=== PATIENT | male | born 1950 | race Caucasian/White ===

== ENCOUNTER → 2016-11-25 | Outpatient (CLI) | payer OTHER ==
[~2016-11-25] MED LIST: ACET-1311 PO; ADVIN25050 INH; ALBUAER19 INH; AMLO-110 PO; ASPI-232 PO; CARV25TA2 PO; DORYX PO; EZET10TA63 PO; LANS30CA12 PO; POTA-327 PO; PRAV20TA PO; SUCR1TAB29 PO; TAMS0.4C38 PO; VENL75TA4 PO
[2016-11-25 13:23] LABS: BASO ABS # 0.05 K/uL (0-0.2); COMPLETE YES; EOS % 3.1 %; HEMATOCRIT 41.1 % (42-52); IG% 0.2 %; LYMPH % 27.5 %; LYMPH ABS # 1.34 K/uL (1.2-3.4); MEAN CELL VOLUME 79.8 fL (80-100); MEAN CORPUSCULAR HEMOGLOBIN 28.5 pg (25-34); MEAN CORPUSCULAR HGB CONC 35.8 g/dl (32-36); MEAN PLATELET VOLUME 10.4 fL (7.4-10.4); NEUT % 59.2 %; PLATELET COUNT 215 K/uL (130-400); RED BLOOD COUNT 5.15 M/uL (4.7-6.1); WHITE BLOOD COUNT 4.88 K/uL (4.8-10.8)
[2016-11-25 13:43] LABS: ALT/SGPT 33 U/L (12-78); BLOOD UREA NITROGEN 15 mg/dl (7-18); BUN/CREATININE RATIO 15.2 (10-20); CALCIUM 9.1 mg/dl (8.5-10.1); CARBON DIOXIDE 25 mmol/L (21-32); CHLORIDE 105 mmol/L (98-107); CREATININE 0.96 mg/dl (0.60-1.40); GLUCOSE 115 mg/dl (70-99); POTASSIUM 3.4 mmol/L (3.5-5.1); SODIUM 142 mmol/L (136-145)
[2016-11-25 13:53] LABS: ALB/GLOB RATIO 1.3 (0.9-2); ALKALINE PHOSPHATASE 101 U/L (45-117); AST/SGOT 19 U/L (15-37)
== END | disposition home or self-care (01) ==
LOC: C.LABSPEC 12:43
PROVIDERS: ATTEND Family Medicine
DX: R42 Dizziness and giddiness (principal); I10 Essential (primary) hypertension; E78.2 Mixed hyperlipidemia

== ENCOUNTER → 2017-08-26 | Outpatient (CLI) | payer OTHER ==
[2017-08-26 13:30] LABS: BASO % 0.9 %; BASO ABS # 0.05 K/uL (0-0.2); COMPLETE YES; EOS % 2.3 %; HEMATOCRIT 39.9 % (42-52); IG% 0.3 %; LYMPH % 29.4 %; LYMPH ABS # 1.69 K/uL (1.2-3.4); MEAN CELL VOLUME 80.3 fL (80-100); MEAN CORPUSCULAR HEMOGLOBIN 28.2 pg (25-34); MEAN CORPUSCULAR HGB CONC 35.1 g/dl (32-36); MEAN PLATELET VOLUME 10.1 fL (7.4-10.4); MONO % 9.4 %; NEUT % 57.7 %; PLATELET COUNT 204 K/uL (130-400); RED BLOOD COUNT 4.97 M/uL (4.7-6.1); WHITE BLOOD COUNT 5.75 K/uL (4.8-10.8)
[2017-08-26 13:41] LABS: ALT/SGPT 37 U/L (12-78); AST/SGOT 21 U/L (15-37); BLOOD UREA NITROGEN 23 mg/dl (7-18); BUN/CREATININE RATIO 23.2 (10-20); CALCIUM 8.6 mg/dl (8.5-10.1); CARBON DIOXIDE 29 mmol/L (21-32); CHLORIDE 102 mmol/L (98-107); CREATININE 1.01 mg/dl (0.60-1.40); GLUCOSE 131 mg/dl (70-99); POTASSIUM 3.1 mmol/L (3.5-5.1); SODIUM 139 mmol/L (136-145)
[2017-08-26 13:46] LABS: ALB/GLOB RATIO 1.2 (0.9-2); ALKALINE PHOSPHATASE 85 U/L (45-117); CHOLESTEROL 221 mg/dl (0-200); CHOLESTEROL/HDL RATIO 6.1; HDL CHOLESTEROL 36 mg/dl; PROSTATE SPECIFIC ANTIGEN 0.808 ng/ml (0.000-4.000); TRIGLYCERIDES 552 mg/dl (0-150)
== END | disposition home or self-care (01) ==
LOC: C.LABSPEC 12:40
PROVIDERS: ATTEND Family Medicine
DX: N40.1 Benign prostatic hyperplasia with lower urinary tract symptoms (principal); I10 Essential (primary) hypertension

== ENCOUNTER → 2017-12-09 | Outpatient (CLI) | payer OTHER ==
[2017-12-09 13:26] LABS: ALBUMIN 3.9 gm/dl (3.4-5.0); ALT/SGPT 38 U/L (12-78); BLOOD UREA NITROGEN 22 mg/dl (7-18); CALCIUM 9.2 mg/dl (8.5-10.1); CARBON DIOXIDE 29 mmol/L (21-32); CHOLESTEROL 163 mg/dl (0-200); CREATININE 1.09 mg/dl (0.60-1.40); GLUCOSE 140 mg/dl (70-99); SODIUM 140 mmol/L (136-145)
[2017-12-09 13:29] LABS: ALKALINE PHOSPHATASE 89 U/L (45-117); AST/SGOT 23 U/L (15-37); LDL CHOLESTEROL CALCULATED 53 mg/dl; TOTAL PROTEIN 7.3 gm/dl (6.4-8.2)
== END | disposition home or self-care (01) ==
LOC: C.LABSPEC 12:15
PROVIDERS: ATTEND Family Medicine
DX: E78.2 Mixed hyperlipidemia (principal); M79.1 Myalgia

== ENCOUNTER 2018-12-20 08:19 | Inpatient (IN) ==
--- NOTE | 2018-11-14 13:12 | Anesthesiology Consultation ---
Date of Service November 14, 2018 Assessment & Plan (1) Encounter for pre-operative examination: Chart Review Chart Review: Acceptable Risk for Surgery and Patient seen in Pre Admission Testing Consults Requested medical (Dr. Cody Lomax (12/04)) Note sent to PCP about HgbA1C and BSG. (11/15) Note from PCP dated 12/05/18 stated "Mr. Callahan was seen in the office yesterday and blood work was performed for the high sugar which improved. Based on PAT and recent results he is cleared for total knee replacement. If you have any questions please do not hesitate to contact me." Teaching & Discussion Pre-Anesthesia Teaching/Discussion Notes: Instructed NPO after midnight before surgery, except medications with 15 cc of water. Medication instructions provided according to the PAT guidelines. History Surgery Operation Date: 12/20/18 07:00 Proposed Procedures p Right Total Knee Arthroplasty, Excision Loose Bodies - Duncan Dominguez MD Height/Weight Height: 6 ft 2 in Weight: 138.3 kg Allergies Allergy/AdvReac Type Severity Reaction Status Date / Time No Known Allergies Allergy Unknown Verified 11/14/18 11:59 Medications Home Medications Medication Instructions Recorded Confirmed Last Taken amlodipine 10 mg PO QAM 11/14/18 11/14/18 Unknown aspirin [Aspirin Low Dose] 81 mg PO HS 11/14/18 11/14/18 Unknown budesonide-formoterol [Symbicort] 2 puff INHALATION QAM 11/14/18 11/14/18 Unknown carvedilol 25 mg PO BID 11/14/18 11/14/18 Unknown celecoxib 200 mg PO QAM PRN 11/14/18 11/14/18 Unknown ezetimibe [Zetia] 10 mg PO HS 11/14/18 11/14/18 Unknown finasteride 5 mg PO QPM 11/14/18 11/14/18 Unknown hydrochlorothiazide 25 mg PO QAM 11/14/18 11/14/18 Unknown lansoprazole 30 mg PO BID 11/14/18 11/14/18 Unknown minocycline 100 mg PO UD PRN 11/14/18 11/14/18 Unknown olmesartan-hydrochlorothiazide 1 tab PO QAM 11/14/18 11/14/18 Unknown potassium chloride 10 meq PO QAM 11/14/18 11/14/18 Unknown pravastatin 40 mg PO QPM 11/14/18 11/14/18 Unknown sucralfate 1 g PO BID 11/14/18 11/14/18 Unknown venlafaxine 75 mg PO HS 11/14/18 11/14/18 Unknown Past Medical History Medical History Asthma INDUSTRIAL ASTHMA BPH (benign prostatic hyperplasia) Difficult airway for intubation 11/28/14 - Glidescope #4 with ETT#8.0. Atraumatic x 1 attempt. Diverticular disease GERD (gastroesophageal reflux disease) Hearing deficit NO AIDES Hyperlipidemia Hypertension Kidney stones Osteoarthritis Peptic ulcer disease POSSIBLE BEGINNING STAGES Sleep apnea CPAP Past Surgical History Surgical History H/O thoracic aortic aneurysm repair History of cardiac cath ~10 YEARS AGO. [employer]. NO STENTS ~3-4 YEARS AGO. [employer]. NO STENTS. History of cholecystectomy LAP 11/28/14 - Glidescope #4 with ETT#8.0. Atraumatic x 1 attempt. History of colonoscopy History of esophagogastroduodenoscopy (EGD) History of open reduction and internal fixation (ORIF) procedure RIGHT ANKLE History of total knee replacement LEFT KNEE Past Anesthesia History No Hx of Anesthesia Complications and No Family Hx of Anesthesia Complications History of PONV No Motion Sickness Screening History of Motion Sickness: Yes Social History Smoking Status: Never smoker Do You Dip or Chew Tobacco: No Hx Alcohol Use: No Hx Substance Use: No substance use type: does not use Exercise / Class Metabolic Activity II 4-5 Yardwork/Stairs/Walk up hill (Able to climb FOS slowly due to knee pain. Denies CP. Does get some SOB due to Asthma. ) Review of Systems Patient denies chest pain, shortness of breath, cough, wheezing, palpitations. +PIERSON (Asthma related per patient) +joint pain (right knee, right ankle) +acid reflux (moderately controlled with medications, but has to be careful about what he eats) +wheezing (at times due to asthma) Physical Exam Vital Signs BP: 154/89 P: 46 R: 18 T: 98.1 SPO2: 97% on RA Constitutional + obese ENMT Thyromental Distance: < 3.5 Finger Breadths (2) Mallampati Class: IV Neck normal visual inspection, trachea midline and + thick neck; neck extension not limited Respiratory normal respiratory effort Auscultation: lungs clear to auscultation bilaterally Cardiovascular Rate/Rhythm: regular rate and regular rhythm Heart Sounds: no murmur Vessels: no carotid bruit Neurologic moves all extremities Psychiatric Orientation: alert and oriented x 3 Testing Electrocardiogram Date: 11/14/18 Findings: + SB @ (49) and + RBBB 1st degree A-V block. Left axis deviation. When compared with ECG of 11-22-14, RBBB is now present. Chest X-Ray Date: 11/14/18 Findings: + NAD Echocardiogram Date: 01/23/16 EF: 60-65% LV Function: normal RWMA: + none Other Findings: + LVH (Mild) and + diastolic dysfunction (Grade 1 (abnormal relaxation) without evidence of increased filling pressure) Severely dilated left atrium. Severely dilated right atrium. Severely enlarged right ventricular size. Normal right ventricular systolic function. Aortic root 3.9cm with ascending aorta 3.9cm. s/p aneurysm repair 32 hemashield dacron graft. No significant change since the prior study of 02/2015. Cardiac Catheterization Date: 05/03/14 1. Calcified left main 2. Calcium in the LAD artery with a 40-40% proximal stenosis. 3. Circumflex demonstrates no irregularities. 4. RCA demonstrates no irregularities. 5. Ventriculogram demonstrates EF of 50%. No significant stenosis or regurgitation. 6. The aortic root is markedly enlarged. *This was done the month before his aortic aneurysm repair* Laboratory Results 11/14/18 12:56 11/14/18 12:56 Blood Type O Positive 11/14/18 12:56 Antibody Screen NEGATIVE 11/14/18 12:56 PT 10.7 Seconds (9.0-12.0) 11/14/18 12:56 INR 1.1 (0.9-1.1) 11/14/18 12:56 APTT 24.4 Seconds (21.0-31.0) 11/14/18 12:56 Hemoglobin A1c 7.4 % (4.5-5.6) H 11/14/18 12:56 Urine Color Yellow 11/14/18 12:56 Urine Appearance Clear (Clear) 11/14/18 12:56 Urine pH 7.0 (4.5-7.5) 11/14/18 12:56 Ur Specific [place] 1.020 (1.000-1.030) 11/14/18 12:56 Urine Protein Negative (Negative) 11/14/18 12:56 Urine Glucose (UA) Negative (Negative) 11/14/18 12:56 Urine Ketones Negative (Negative) 11/14/18 12:56 Urine Nitrite Negative (Negative) 11/14/18 12:56 Ur Leukocyte Esterase Negative (Negative) 11/14/18 12:56 Surgeon's office notified about HgbA1c and BSG on this patient that has no known history of diabetes.
--- NOTE | 2018-11-14 13:13 | PAT Medication Instructions ---
Medication Instructions Date of Service November 14, 2018 Home Medications amlodipine 10 mg PO QAM aspirin [Aspirin Low Dose] 81 mg PO HS budesonide-formoterol [Symbicort] 2 puff INHALATION QAM carvedilol 25 mg PO BID celecoxib 200 mg PO QAM PRN ezetimibe [Zetia] 10 mg PO HS finasteride 5 mg PO QPM hydrochlorothiazide 25 mg PO QAM lansoprazole 30 mg PO BID minocycline 100 mg PO UD PRN olmesartan-hydrochlorothiazide 1 tab PO QAM potassium chloride 10 meq PO QAM pravastatin 40 mg PO QPM sucralfate 1 g PO BID venlafaxine 75 mg PO HS Continue as directed minocycline 100 mg PO UD PRN ASK your surgeon for instructions celecoxib 200 mg PO QAM PRN DO NOT take the morning of surgery hydrochlorothiazide 25 mg PO QAM olmesartan-hydrochlorothiazide 1 tab PO QAM potassium chloride 10 meq PO QAM sucralfate 1 g PO BID Take morning of surgery With a small sip of water, OTHERWISE NOTHING TO EAT OR DRINK AFTER MIDNIGHT: amlodipine 10 mg PO QAM budesonide-formoterol [Symbicort] 2 puff INHALATION QAM carvedilol 25 mg PO BID lansoprazole 30 mg PO BID Take evening before surgery aspirin [Aspirin Low Dose] 81 mg PO HS ezetimibe [Zetia] 10 mg PO HS finasteride 5 mg PO QPM lansoprazole 30 mg PO BID pravastatin 40 mg PO QPM sucralfate 1 g PO BID venlafaxine 75 mg PO HS Other Notes If you have any questions please call us at [phone] or [phone] or [phone] or [phone]
[2018-11-14 14:45] LABS: Basophils # (auto) 0.04 K/uL (0-0.2); Basophils % (auto) 0.6 %; Eosinophils # (auto) 0.15 K/uL (0-0.5); Eosinophils % (auto) 2.2 %; Hematocrit (blood only) 42.2 % (42-52); Hemoglobin 14.4 g/dL (14.0-18.0); Immature Granulocytes # (auto) 0.02 K/uL (0.00-0.02); Immature Granulocytes % (auto) 0.3 %; Lymphocytes # (auto) 1.79 K/uL (1.2-3.4); Lymphocytes % (auto) 25.7 %; Mean Corpuscular Hgb Conc 34.1 g/dL (32-36); Mean Corpuscular Volume 81.2 fL (80-100); Monocytes # (auto) 0.53 K/uL (0.11-0.59); Monocytes % (auto) 7.6 %; Neutrophils # (auto) 4.43 K/uL (1.4-6.5); Neutrophils % (auto) 63.6 %; Platelet Count 221 K/uL (130-400); RDW Coefficient of Variation 13.1 % (11.5-14.5); RDW Standard Deviation 39.3 fL (36.4-46.3); White Blood Count 6.96 K/uL (4.8-10.8)
[2018-11-14 14:53] LABS: BUN Creatinine Ratio 21.2 (10-20); Calcium 8.8 mg/dl (8.5-10.1); Est GFR (African American) 78.9; Est GFR (Non-African American) 68.1; Potassium 3.2 mmol/L (3.5-5.1)
[2018-11-14 14:59] LABS: INR 1.1 (0.9-1.1); Partial Thromboplastin Ratio 0.9; Partial Thromboplastin Time 24.4 Seconds (21.0-31.0); Prothrombin Time 10.7 Seconds (9.0-12.0)
[2018-11-14 15:16] LABS: Appearance Urine Clear (Clear); Bilirubin Urine Negative (Negative); Blood Urine Negative (Negative); Color Urine Yellow; Glucose Urine UA Negative (Negative); Ketones Urine Negative (Negative); Leukocyte Esterase Urine Negative (Negative); Nitrite Urine Negative (Negative); Protein Urine Negative (Negative); Urobilinogen Urine Negative (Negative)
--- NOTE | 2018-11-14 15:43 | XRay Report ---
XR chest Pre-admission PA/Lat HISTORY: 68 years-old Male pat preoperative exam. No acute chest complaints COMPARISON: Chest radiograph 11/22/2014 TECHNIQUE: PA and lateral views of the chest FINDINGS: Cardiomediastinal and hilar silhouettes appear unchanged. Prior median sternotomy. Calcification of t he thoracic aortic arch. There is no pneumothorax, pleural effusion, focal airspace consolidation or overt pulmonary edema. Degenerative changes are noted about the shoulders and spine. IMPRESSION: No acute process. The above report was generated using voice recognition software. It may contain grammatical, syntax o r spelling errors. Electronically signed by: Robinson Rea M.D. 11/14/2018 3:41 PM
[2018-11-15 05:40] LABS: Estimated Average Glucose 166 mg/dl; Hemoglobin A1C 7.4 % (4.5-5.6)
--- NOTE | 2018-12-19 18:44 | History and Physical Report ---
DATE OF ADMISSION: 12/20/2018 CHIEF COMPLAINT: Chronic right knee pain and instability. HISTORY OF PRESENT ILLNESS: This is a 68-year-old male patient of Dr. Galan complaining of chronic right knee pain, longstanding, now progressively getting worse. The patient has failed conservative treatment including anti-inflammatories, intraarticular injections and the use of a brace. The patient has increased pain with weightbearing activities and his pain does interfere with his activities of daily living. PAST MEDICAL HISTORY: Hypertension, hypercholesterolemia, asthma, sleep apnea with the use of CPAP, anxiety, osteoarthritis, acid reflux, obesity, kidney stones, BPH. SOCIAL HISTORY: Nonsmoker, nondrinker. FAMILY HISTORY: Noncontributory. REVIEW OF SYSTEMS: Chronic right knee pain and instability. Otherwise denies any shortness of breath, chest pain, nausea, vomiting or any other joint complaints. PAST SURGICAL HISTORY: Left knee replacement, aortic aneurysm repair, cholecystectomy, ankle repair. MEDICATIONS: Zetia 10 mg daily, potassium chloride 10 mEq daily, venlafaxine 75 mg daily, olmesartan/hydrochlorothiazide 40/25 daily, amlodipine 10 mg daily, finasteride 5 mg daily, pravastatin 40 mg daily, hydrochlorothiazide 25 mg daily, aspirin 81 mg daily, carvedilol 25 mg twice daily, lansoprazole 30 mg twice daily, sucralfate 1 gram twice daily, Symbicort 160/45 two puffs daily, minocycline 100 mg as needed, Celebrex 200 mg daily. ALLERGIES: No known drug allergies. PHYSICAL EXAMINATION: GENERAL: Well-developed, well-nourished 68-year-old male patient of Dr. Galan. He is alert and oriented x3 and pleasant. HEENT: Normocephalic, atraumatic. Extraocular motions are intact. Pupils are equal and reactive to light. HEART: Regular rate and rhythm, no murmurs. LUNGS: Clear. ABDOMEN: Soft, nontender, bowel sounds present. EXTREMITIES: Right knee reveals a mild effusion. He has a limited range of motion of 0-120 degrees with a varus deformity. He has medial joint line tenderness. He has 5/5 strength. Neurologically and neurovascularly he is intact in his right lower extremity. DIAGNOSES: Right knee end-stage osteoarthritis, hypertension, hypercholesterolemia, asthma, sleep apnea with the use of CPAP, anxiety, osteoarthritis, acid reflux, obesity, kidney stones, benign prostatic hypertrophy. PLAN: The patient was advised of his diagnosis. Indications, risks, benefits, postop course have all been reviewed. The patient wished to proceed with a right total knee arthroplasty. Necessary consent forms, preoperative testing and clearances will be obtained.
[~2018-12-20 08:19] MED LIST changes: -ACET-1311 PO; +ACETAMINOPHEN 500 MG TAB PO SCH; -ADVIN25050 INH; -ALBUAER19 INH; -AMLO-110 PO; -ASPI-232 PO; +BUPIVACAINE 0.5 % 5 MG/1 ML PF 10ML VIAL ONE; -CARV25TA2 PO; +CEFAZOLIN 3000MG 65 ML IV SCH; +CeleBREX 200 MG CAP PO SCH; -DORYX PO; +EPINEPHrine INJ 1 MG/ML AMP ONE; -EZET10TA63 PO; +FAMOTIDINE 20 MG TAB PO SCH; +GABAPENTIN 300 MG PO SCH; -LANS30CA12 PO; +LIDOCAINE HCL 2% 2 ML VIAL/AMP(20MG/ML) INFIL ONE; +LR 500ML BOLUS, THEN 15ML/HR IV SCH; +METOCLOPRAMIDE HCL 10 MG TABLET PO SCH; +MIDAZOLAM HCL 1 MG/ML 2ML VIAL ONE; +ONDANSETRON INJ 2 MG/ML 2 ML VIAL ONE; -POTA-327 PO; -PRAV20TA PO; +PROPOFOL IV EMULSION 10 MG/ML 20 ML VIAL IV ONE; +ROPIVACAINE 0.5% 5 MG/ML 30 ML VIAL ONE; +ROPIVACAINE 0.5% HCL/PF 150 MG, BUPIVACAINE 0.5% MPF 30 ML, EPINEPHrine 30MG/30ML (OR U... INFIL SCH; -SUCR1TAB29 PO; -TAMS0.4C38 PO; +TRANEXAMIC ACID 1,000 MG **IV Intra-op IV SCH; +TRANEXAMIC ACID 1,000 MG **IV Pre-op IV SCH; -VENL75TA4 PO; +dexAMETHasone 4 MG TAB PO SCH; +fentaNYL citrate 100 MCG/2 ML VIAL ONE
--- NOTE | 2018-12-20 08:39 | History & Physical Bridge Note ---
Date of Service December 20, 2018 History & Physical Bridge Note I have examined the patient, reviewed the History & Physical and in the interval since the performance of the History & Physical I have noted the following changes of clinical significance: no changes noted
[2018-12-20] MEDS ORDERED: POVIDONE-IODINE OP SOLN 30 ML BTL ONE (09:19)
[2018-12-20] MEDS ORDERED: ORTHO JOINT ANESTHETIC ONE (09:19)
[2018-12-20] MEDS ORDERED: BACITRACIN INJ 50,000 UNIT VIAL ONE (09:19)
[2018-12-20] MEDS ORDERED: fentaNYL citrate 100 MCG/2 ML VIAL ONE ×4 (09:57→12:17)
[2018-12-20] MEDS ORDERED: ePHEDrine sulfate 50 MG/ML AMP IV PRN (10:08)
[2018-12-20] MEDS ORDERED: ATROPINE SULFATE 0.1 MG/ML 10ML SYR IV PRN (10:08)
[2018-12-20] MEDS ORDERED: PROPOFOL IV EMULSION 10 MG/ML 20 ML VIAL IV ONE (10:26)
[2018-12-20] MEDS ORDERED: MIDAZOLAM HCL 1 MG/ML 2ML VIAL ONE (10:43)
--- NOTE | 2018-12-20 12:09 | Operative Report ---
Post Operative Report Pre & Post Diagnosis Operation Date: 12/20/18 11:00 Pre-Op Diagnosis: Right knee end-stage osteoarthritis multiple posterior medial loose bodies Post-Op Diagnosis: Right knee end-stage osteoarthritis multiple posterior medial loose bodies extra-articular Procedure Operation Date: 12/20/18 11:00 Actual Procedures p Right Total Knee Arthroplasty(Right) - Duncan Dominguez MD Surgeon Duncan Dominguez MD Floor Winder Jose CARDENAS Estimated Blood Loss 5 Findings Consistent with Post-Op Diagnosis Specimens Bone cuts Drains 2 Hemovac Anesthesia Type Spinal MAC Complications none Disposition Accompanied Patient To Recovery: No Disposition: Recovery Room Indications 68-year-old male with chronic progressive medial compartment osteoarthritis in his right knee. History of prior left knee replacement in the past. Patient has multiple calcifications suggesting loose bodies possibly in the Nichols's cyst posterior medially. Description of Procedure The patient was taken to the operating room and anesthetized under spinal MAC regional block. Patient was placed supine on the the operating table. A pneumatic tourniquet was placed about the right upper moderately obese thigh. The knee exam demonstrated varus knee no instability good range of motion. The involved leg was elevated exsanguinated with Esmarch bandage and the pneumatic tourniquet was raised to 350 millimeters mercury. A longitudinal incision was made across the anterior knee. Skin flaps were elevated. An incision was made into the medial retinaculum and extended up into the mid third of the quadriceps tendon and extended down to the tibial tubercle. Intra-articular findings demonstrated medial compartment osteoarthritis [id number]. The knee was exposed by excising cruciate ligaments and menisci. The infrapatellar fat pad was resected. The fat pad over the anterior femur at the upper aspect of the articular surface was resected for placement of the component in that area. A subperiosteal peel lateral release was performed around the patella. The [employer] total knee arthroplasty system was utilized for the procedure. The custom femoral cutting guide was pinned in position. The distal femoral cut was made. The size 8, 5 in 1 cutting block was placed. The anterior posterior and chamfer cuts were made. The knee was extended and a free hand cut technique was performed to the patella. The patella with was measured and the width was reproduced using a 38 patella component. 3 drill holes are made for the patella component pegs. The tibia was then subluxed. The custom tibial cutting block was pinned in position and the proximal tibial cut was made with the oscillating saw. The size 8 tibial trial was externally rotated in line with the tibial tubercle and pinned in position. The punch for the stem was used. The femoral trial was inserted and centered the notch cutting devices were used and the collet was placed. Tibial trials were used for the insert. The size 9 high flex trial gave balanced ligaments through full range of motion. Patella tracking was assessed with range of motion. The patella tracked laterally with some liftoff so I performed a lateral release leaving the synovium intact and the patella tracked centrally.. The trials were removed. The Orthomix anesthetic cocktail was injected per protocol. The cut bone surfaces and soft tissue were copiously irrigated with antibiotic solution with bacitracin. The final components were cemented with Simplex cement. The final components were size 8 right [employer] posterior stabilized femoral component, size 8 tibial primary baseplate, lesion size 9 posterior stabilized high flex poly-insert, 38 symmetrical patella. While the cement cured the Betadine soak was used per protocol. When the cement cured the knee was copiously irrigated with pulsatile lavage antibiotic solution with bacitracin. 2 drains were brought out laterally connected to Hemovac. The quadriceps tendon and medial retinaculum were closed with interrupted [id number] #1 Vicryl sutures. The knee was taken through full range of motion and repair was secure. The subcutaneous tissues were closed with 2-0 Vicryl sutures. The skin was closed with ciara. A sterile dressing was applied. The tourniquet was let down and the patient had good capillary refill to the extremity. The patient tolerated the procedure well. My physician pharmaceutical assistant Jose CARDENAS assisted in the procedure including prepping draping leg positioning soft tissue retraction instrument management and assisted in the closure ,dressings application and will participate in postoperative care the patient. I attest to the content of the Intraoperative Record and any orders documented therein. Any exceptions are noted below.
--- NOTE | 2018-12-20 12:54 | Anesthesiology Progress Note ---
Date of Service December 20, 2018 Anesthesia Post Procedure Vital Signs Vital Signs: Temp Pulse Pulse Pulse Resp BP BP 12/20/18 12:51 53 L 19 137/78 12/20/18 12:50 52 L 14 12/20/18 12:46 52 L 17 141/78 H 12/20/18 12:45 52 L 17 12/20/18 12:41 52 L 19 138/75 12/20/18 12:40 52 L 17 12/20/18 12:36 50 L 14 142/80 H 12/20/18 12:35 52 L 14 12/20/18 12:31 52 L 15 12/20/18 12:30 36.5 C 54 L 53 L 13 143/83 H 143/83 H 12/20/18 08:46 36.6 C 46 L 20 172/87 H Pulse Ox 12/20/18 12:51 97 12/20/18 12:50 98 12/20/18 12:46 97 12/20/18 12:45 98 12/20/18 12:41 99 12/20/18 12:40 100 12/20/18 12:36 100 12/20/18 12:35 100 12/20/18 12:31 100 12/20/18 12:30 100 12/20/18 08:46 97 Pain Intensity Right Knee: Pain Intensity: 0 Notes Mental Status: alert / awake / arousable Patient Amnestic to Procedure: Yes Nausea / Vomiting: adequately controlled Pain: adequately controlled Airway Patency, RR, SpO2: stable & adequate BP & HR: stable & adequate Hydration State: stable & adequate Neuraxial Anesthesia: was administered and sensory block is resolving Anesthetic Complications: no major complications apparent
--- NOTE | 2018-12-20 13:12 | XRay Report ---
XR knee RT 2V routine CLINICAL HISTORY: Surgical Post Op COMPARISON: None. DISCUSSION: There are postsurgical changes of a total right knee arthroplasty and patellar resurfacin g. The femoral tibial components appear well seated. There is air in soft tissues consistent with rec ent surgery. There are overlying skin ciara and surgical drains. There are multiple posterior media l calcifications, likely representing loose bodies within a popliteal cyst. IMPRESSION: 1. Postsurgical changes of a total right knee arthroplasty 2. Suspected multiple loose bodies within a popliteal cyst Electronically signed by: Coy Ramirez M.D. 12/20/2018 1:11 PM
[2018-12-20] MEDS ORDERED: SODIUM CHLORIDE 0.9% 1000ML 1,000 ML IV SCH (13:24)
[2018-12-20] MEDS ORDERED: HYDROmorphone INJ 0.5 MG/0.5 ML SYR IV PRN (13:24)
[2018-12-20] MEDS ORDERED: NALOXONE HCL 0.4 MG/1 ML VIAL/CARP IV PRN (13:24)
[2018-12-20] MEDS ORDERED: MAGNESIUM HYDROXIDE SUSP 30 ML UDC PO PRN (13:24)
[2018-12-20] MEDS ORDERED: ONDANSETRON INJ 2 MG/ML 2 ML VIAL IV PRN (13:24)
[2018-12-20] MEDS ORDERED: BISACODYL 10 MG SUPP PR PRN (13:24)
--- NOTE | 2018-12-20 16:26 | History & Physical Report ---
Date of Service December 20, 2018 Assessment & Plan (1) Knee pain, chronic: post-op R knee Pre-op Hb 14.4 (2) Elevated hemoglobin A1c: Hx of same and improved with weight loss Never dx as DM Advised to work on diet and add in exercise as knee allows Fasting BS on pre-op labs 127 (3) CHERRY (obstructive sleep apnea): CPAP as at home (4) Hyperlipidemia: continue home meds (5) HTN (hypertension): continue home meds (6) GERD (gastroesophageal reflux disease): continue home meds (7) Depression: continue home meds (8) Asthma: No recent exacerbations or rescue inhaler use (9) Anxiety: continue home meds (10) DVT prophylaxis: As per ortho History of Present Illness Primary Care Provider: Chet Lomax 68 y/o M who was admitted on 12/20 s/p R TKA with Dr. Dominguez. Pt is doing well post-op. He has no pain at present. Tolerating PO without issue. Pt denies fever, SOB, chest pain, abd pain, n/v/c/d, LE swelling. Pt states he has no hx of DM. He did have an elevated A1c at one point in the 7s, but he lost weight and it dropped to 7.0. Allergies Allergy/AdvReac Type Severity Reaction Status Date / Time No Known Allergies Allergy Unknown Verified 12/20/18 08:52 Home Medications Home Medications Medication Instructions Recorded Confirmed Type amlodipine 10 mg PO QAM 11/14/18 12/20/18 History aspirin [Aspirin Low Dose] 81 mg PO HS 11/14/18 12/20/18 History budesonide-formoterol [Symbicort] 2 puff INHALATION QAM 11/14/18 12/20/18 History carvedilol 25 mg PO BID 11/14/18 12/20/18 History celecoxib 200 mg PO QAM PRN 11/14/18 12/20/18 History ezetimibe [Zetia] 10 mg PO HS 11/14/18 12/20/18 History finasteride 5 mg PO QPM 11/14/18 12/20/18 History hydrochlorothiazide 25 mg PO QAM 11/14/18 12/20/18 History lansoprazole 30 mg PO BID 11/14/18 12/20/18 History minocycline 100 mg PO UD PRN 11/14/18 12/20/18 History olmesartan-hydrochlorothiazide 1 tab PO QAM 11/14/18 12/20/18 History potassium chloride 10 meq PO QAM 11/14/18 12/20/18 History pravastatin 40 mg PO QPM 11/14/18 12/20/18 History sucralfate 1 g PO BID 11/14/18 12/20/18 History venlafaxine 75 mg PO HS 11/14/18 12/20/18 History Past Med/Surg History Medical History Asthma INDUSTRIAL ASTHMA BPH (benign prostatic hyperplasia) Diverticular disease GERD (gastroesophageal reflux disease) Hearing deficit NO AIDES Hyperlipidemia Hypertension Kidney stones Osteoarthritis Peptic ulcer disease POSSIBLE BEGINNING STAGES Sleep apnea CPAP Surgical History Difficult airway for intubation 11/28/14 - Glidescope #4 with ETT#8.0. Atraumatic x 1 attempt. H/O thoracic aortic aneurysm repair History of cardiac cath ~10 YEARS AGO. [employer]. NO STENTS ~3-4 YEARS AGO. [employer]. NO STENTS. History of cholecystectomy LAP 11/28/14 - Glidescope #4 with ETT#8.0. Atraumatic x 1 attempt. History of colonoscopy History of esophagogastroduodenoscopy (EGD) History of open reduction and internal fixation (ORIF) procedure RIGHT ANKLE History of total knee replacement LEFT KNEE Social History Preferred Language: Icelandic Communication Ability: Effective Broom Man Required: No Beliefs That Will Affect Care: Sikh Current Living Situation: Spouse Other Information That Helps Us Care for You: No Feels Safe at Home: Yes Safety Concerns: Feels Safe At This Time Smoking Status: Never smoker Hx Alcohol Use: No Hx Substance Use: No Review of Systems Pertinent positives and negatives reviewed in HPI--all others negative Physical Exam Vital Signs (Past 24 Hours): Last Vital Signs Temp 36.4 C L 12/20/18 15:38 Pulse 58 L 12/20/18 15:38 Resp 18 12/20/18 15:38 BP 130/76 12/20/18 15:38 Pulse Ox 97 12/20/18 15:38 Constitutional: WD/WN, vitals as above + obese Eyes: normal visual islas by confrontation and + anicteric sclerae Neck: normal visual inspection and trachea midline Respiratory: normal respiratory effort, lungs clear to auscultation Cardiovascular: Rate/Rhythm: regular rate and regular rhythm Gastrointestinal (Abdomen): Inspection/Auscultation: abdomen not distended Percussion/Palpation: abdomen soft; abdomen nontender Musculoskeletal: Head/Neck/Chest: normocephalic and head atraumatic negative for edema, peripheral pulses intact Skin: no rashes, warm and dry Neurologic: awake; not confused Speech / Cognition: normal speech Psychiatric: A+Ox3, euthymic affect Code Status & VTE Plan Code Status Full code
[2018-12-20] MEDS: CEFAZOLIN 2000MG 2,000 MG/15 ML SYR IV SCH (17:24)
[2018-12-20] MEDS: ACETAMINOPHEN 500 MG TAB PO SCH (17:25)
[2018-12-20] MEDS: SENNA 8.6 MG TAB PO SCH (21:15)
[2018-12-20] MEDS: EZETIMIBE 10 MG TABLET PO SCH (21:16)
[2018-12-20] MEDS: PANTOprazole 40 MG TAB PO SCH (21:16)
[2018-12-20] MEDS: DOCUSATE SODIUM 100 MG CAP PO SCH (21:16)
[2018-12-20] MEDS: SUCRALFATE 1 GM TAB PO SCH (21:17)
[2018-12-20] MEDS: CeleBREX 200 MG CAP PO SCH (21:18)
[2018-12-20] MEDS: CARVEDILOL 25 MG TAB PO SCH (21:20)
[2018-12-20] MEDS: ASPIRIN 81 MG ECTAB PO SCH (21:21)
[2018-12-20] MEDS: FINASTERIDE 5 MG TAB PO SCH (21:22)
[2018-12-20] MEDS: PRAVASTATIN SOD 40 MG TAB PO SCH (21:22)
[2018-12-20] MEDS: VENLAFAXINE HCL XR 75 MG CAPXR PO SCH (21:22)
[2018-12-20] MEDS: OXYCODONE HCL IR 5 MG TAB (IMMEDIATE RELEASE) PO PRN (21:32)
[2018-12-21] MEDS: CEFAZOLIN 2000MG 2,000 MG/15 ML SYR IV SCH (00:25)
[2018-12-21] MEDS: ACETAMINOPHEN 500 MG TAB PO SCH ×3 (06:08→22:01)
[2018-12-21 07:41] LABS: Hematocrit (blood only) 37.8 % (42-52); Hemoglobin 13.4 g/dL (14.0-18.0); Mean Corpuscular Hgb Conc 35.4 g/dL (32-36); Mean Corpuscular Volume 81.3 fL (80-100); Mean Platelet Volume 10.3 fL (7.4-10.4); Platelet Count 215 K/uL (130-400); RDW Standard Deviation 38.5 fL (36.4-46.3); Red Blood Count 4.65 M/uL (4.7-6.1); White Blood Count 16.09 K/uL (4.8-10.8)
[2018-12-21 08:14] LABS: BUN Creatinine Ratio 19.3 (10-20); Calcium 8.8 mg/dl (8.5-10.1); Creatinine Clr Calc Pharmacy 94.7 ml/min; Est GFR (African American) 79.8; Est GFR (Non-African American) 68.8; Potassium 3.1 mmol/L (3.5-5.1)
--- NOTE | 2018-12-21 08:24 | Anesthesiology Progress Note ---
Date of Service December 21, 2018 Anesthesia Post Procedure Vital Signs Vital Signs: Temp Pulse Pulse Pulse Pulse Resp BP 12/21/18 07:41 36.6 C 56 L 18 12/21/18 03:08 36.7 C 54 L 20 12/20/18 23:19 36.5 C 56 L 20 12/20/18 19:56 36.7 C 53 L 18 12/20/18 16:15 54 L 18 12/20/18 15:38 36.4 C L 58 L 18 12/20/18 13:41 54 L 16 12/20/18 13:15 36.9 C 54 L 16 12/20/18 12:57 36.9 C 12/20/18 12:56 52 L 15 139/78 12/20/18 12:55 52 L 18 12/20/18 12:52 52 L 16 12/20/18 12:51 53 L 19 137/78 12/20/18 12:50 52 L 14 12/20/18 12:46 52 L 17 141/78 H 12/20/18 12:45 52 L 17 12/20/18 12:41 52 L 19 138/75 12/20/18 12:40 52 L 17 12/20/18 12:36 50 L 14 142/80 H 12/20/18 12:35 52 L 14 12/20/18 12:31 52 L 15 12/20/18 12:30 36.5 C 54 L 53 L 13 143/83 H 12/20/18 08:46 36.6 C 46 L 20 BP Pulse Ox 12/21/18 07:41 152/84 H 99 12/21/18 03:08 129/75 98 12/20/18 23:19 144/68 H 96 12/20/18 19:56 149/81 H 95 12/20/18 16:15 138/81 12/20/18 15:38 130/76 97 12/20/18 13:41 151/99 H 95 12/20/18 13:15 152/78 H 97 12/20/18 12:57 97 12/20/18 12:56 98 12/20/18 12:55 97 12/20/18 12:52 98 12/20/18 12:51 97 12/20/18 12:50 98 12/20/18 12:46 97 12/20/18 12:45 98 12/20/18 12:41 99 12/20/18 12:40 100 12/20/18 12:36 100 12/20/18 12:35 100 12/20/18 12:31 100 12/20/18 12:30 143/83 H 100 12/20/18 08:46 172/87 H 97 Pain Intensity Right Knee: Pain Intensity: 0 Notes Mental Status: alert / awake / arousable and participated in evaluation Nausea / Vomiting: adequately controlled Pain: adequately controlled Airway Patency, RR, SpO2: stable & adequate BP & HR: stable & adequate Hydration State: stable & adequate Neuraxial Anesthesia: sensory block resolved Anesthetic Complications: Pt Satisfied with anesthetic care
[2018-12-21] MEDS: hydroCHLOROthiazide 25 MG TAB PO SCH ×2 (08:32→08:35)
[2018-12-21] MEDS: SUCRALFATE 1 GM TAB PO SCH ×2 (08:33→20:18)
[2018-12-21] MEDS: POTASSIUM CHLORIDE 10 MEQ TABCR PO SCH (08:34)
[2018-12-21] MEDS: CARVEDILOL 25 MG TAB PO SCH ×2 (08:34→20:18)
[2018-12-21] MEDS: ASPIRIN 81 MG ECTAB PO SCH ×2 (08:34→20:18)
[2018-12-21] MEDS: AMLODIPINE BESYLATE 5 MG TAB PO SCH (08:35)
[2018-12-21] MEDS: DOCUSATE SODIUM 100 MG CAP PO SCH ×2 (08:35→20:18)
[2018-12-21] MEDS: OLMESARTAN MEDOXOMIL 40 MG TAB PO SCH (08:36)
[2018-12-21] MEDS: PANTOprazole 40 MG TAB PO SCH ×2 (08:36→20:17)
[2018-12-21] MEDS: CeleBREX 200 MG CAP PO SCH ×2 (08:37→20:18)
[2018-12-21] MEDS: MULTIVITAMIN TAB PO SCH (08:37)
[2018-12-21] MEDS: BUDESONIDE/FORMOTEROL FUMARATE 160/4.5 60 PUFFS/INHALER INH SCH (08:37)
[2018-12-21] MEDS ORDERED: NON-FORMULARY MEDICATION (Olmesartan-Hydrochlorothiazide 1 TAB) PO SCH (09:00)
--- NOTE | 2018-12-21 09:19 | Orthopedic Progress Note ---
Date of Service December 21, 2018 Assessment & Plan (1) Right knee DJD: POD #1, Right TKA PT/ OT DVT proph- ASA D/C planning- Home w HH per medicine Subjective POD #1, Right TKA, doing well, denies SOB, CP, N/V, pain controlled well. Physical Exam Vital Signs (Past 24 Hours): Last Vital Signs Temp 36.6 C 12/21/18 07:41 Pulse 56 L 12/21/18 07:41 Resp 18 12/21/18 07:41 BP 152/84 H 12/21/18 07:41 Pulse Ox 99 12/21/18 07:41 Physical Exam: Right knee dressings c/d/i, no drainage. No calf tenderness. Drain in tact. Toes and ankle mobile. A&Ox3.
[2018-12-21] MEDS: POTASSIUM CHLORIDE 20 MEQ TABCR PO SCH ×2 (10:07→20:19)
[2018-12-21] MEDS: OXYCODONE HCL IR 5 MG TAB (IMMEDIATE RELEASE) PO PRN ×2 (11:18→22:03)
[2018-12-21] MEDS ORDERED: CALCIUM CARBONATE 500 MG CHEWABLE TAB PO PRN (19:19)
[2018-12-21] MEDS: FINASTERIDE 5 MG TAB PO SCH (20:17)
[2018-12-21] MEDS: EZETIMIBE 10 MG TABLET PO SCH (20:18)
[2018-12-21] MEDS: VENLAFAXINE HCL XR 75 MG CAPXR PO SCH (20:18)
[2018-12-21] MEDS: SENNA 8.6 MG TAB PO SCH (20:18)
[2018-12-21] MEDS: PRAVASTATIN SOD 40 MG TAB PO SCH (20:18)
--- NOTE | 2018-12-21 20:45 | Hospitalist Progress Note ---
Date of Service December 21, 2018 Assessment & Plan (1) Asthma: no symptoms at this time cont symbicort (2) GERD (gastroesophageal reflux disease): cont PPI, carafate, and add tums prn for breakthrough symptoms (3) HTN (hypertension): controlled cont home medications (4) CHERRY (obstructive sleep apnea): (5) DM w/o complication type II: a1c >7% c/w T2DM change diet from regular to T2DM check BSGs ac/hs low threshold for sliding scale insulin (6) Hypokalemia: 2nd to HCTZ use replace today, repeat level in AM mag level noted to be normal at discharge will increase standing K supplement from 10meq daily to 20meq daliy this was sent to [facility] for patient today Subjective patient feeling well no chest pain, dyspnea, abd pain +flatus -- no stool yet ambulating anticipates d/c tomorrow Constitutional: no fever Respiratory: no cough and no dyspnea Cardiovascular: no chest pain Gastrointestinal: no abdominal pain Physical Exam Vital Signs (Past 24 Hours): Last Vital Signs Temp 36.5 C 12/21/18 15:57 Pulse 50 L 12/21/18 20:25 Resp 18 12/21/18 15:57 BP 150/80 H 12/21/18 20:25 Pulse Ox 99 12/21/18 15:57 Constitutional: well developed, well nourished and + obese; no acute distress and not ill appearing ENMT: external ear and nose normal, oropharynx normal Respiratory: normal respiratory effort, lungs clear to auscultation Cardiovascular: RRR, no murmur, no edema Heart Sounds: normal S1 and normal S2 Vessels: posterior tibial pulses present and dorsalis pedis pulses present; no JVD Gastrointestinal (Abdomen): normal bowel sounds, soft, nontender, no hepatosplenomegaly Inspection/Auscultation: + abdomen distended (mild) Musculoskeletal: right knee dressings intact; drain in place Psychiatric: A+Ox3, euthymic affect Results & Data Laboratory Results Laboratory Results - last 24 hr 12/21/18 12/21/18 12/21/18 06:58 06:58 06:58 WBC 16.09 H RBC 4.65 L Hgb 13.4 L Hct 37.8 L MCV 81.3 MCH 28.8 MCHC 35.4 RDW Std Deviation 38.5 RDW Coeff of Krishna 13.0 Plt Count 215 MPV 10.3 Sodium 140 Potassium 3.1 L Chloride 107 Carbon Dioxide 24 Anion Gap 9.0 BUN 21 H Creatinine 1.11 Est Cr Clr Drug Dosing 94.7 Est GFR ( Amer) 79.8 Est GFR (Non-Af Amer) 68.8 BUN/Creatinine Ratio 19.3 Glucose 163 H Calcium 8.8 Magnesium 2.2 (1) Asthma Asthma severity: unspecified severity Asthma persistence: intermittent Asthma complication type: uncomplicated Qualified Code(s): J45.20 - Mild intermittent asthma, uncomplicated (2) GERD (gastroesophageal reflux disease) Esophagitis presence: esophagitis presence not specified Qualified Code(s): K21.9 - Gastro-esophageal reflux disease without esophagitis (3) HTN (hypertension) Hypertension type: essential hypertension Qualified Code(s): I10 - Essential (primary) hypertension
[2018-12-22] MEDS: ACETAMINOPHEN 500 MG TAB PO SCH (05:32)
[2018-12-22 06:35] LABS: Hematocrit (blood only) 32.6 % (42-52); Hemoglobin 11.4 g/dL (14.0-18.0); Mean Corpuscular Volume 81.3 fL (80-100); Mean Platelet Volume 10.2 fL (7.4-10.4); Platelet Count 194 K/uL (130-400); RDW Coefficient of Variation 13.4 % (11.5-14.5); RDW Standard Deviation 40.1 fL (36.4-46.3); Red Blood Count 4.01 M/uL (4.7-6.1); White Blood Count 9.55 K/uL (4.8-10.8)
[2018-12-22 07:12] LABS: BUN Creatinine Ratio 23.8 (10-20); Calcium 8.4 mg/dl (8.5-10.1); Creatinine Clr Calc Pharmacy 106.1 ml/min; Est GFR (African American) 91.6; Potassium 3.1 mmol/L (3.5-5.1)
[2018-12-22] MEDS: OXYCODONE HCL IR 5 MG TAB (IMMEDIATE RELEASE) PO PRN (07:41)
[2018-12-22] MEDS: MULTIVITAMIN TAB PO SCH (07:42)
[2018-12-22] MEDS: ASPIRIN 81 MG ECTAB PO SCH (07:42)
[2018-12-22] MEDS: PANTOprazole 40 MG TAB PO SCH (07:42)
[2018-12-22] MEDS: SUCRALFATE 1 GM TAB PO SCH (07:42)
[2018-12-22] MEDS: POTASSIUM CHLORIDE 10 MEQ TABCR PO SCH (07:42)
[2018-12-22] MEDS: hydroCHLOROthiazide 25 MG TAB PO SCH ×2 (07:42→07:44)
[2018-12-22] MEDS: DOCUSATE SODIUM 100 MG CAP PO SCH (07:43)
[2018-12-22] MEDS: CARVEDILOL 25 MG TAB PO SCH (07:43)
[2018-12-22] MEDS: AMLODIPINE BESYLATE 5 MG TAB PO SCH (07:43)
[2018-12-22] MEDS: POTASSIUM CHLORIDE 20 MEQ TABCR PO SCH (07:44)
[2018-12-22] MEDS: OLMESARTAN MEDOXOMIL 40 MG TAB PO SCH (07:44)
[2018-12-22] MEDS: CeleBREX 200 MG CAP PO SCH (07:44)
[2018-12-22] MEDS: BUDESONIDE/FORMOTEROL FUMARATE 160/4.5 60 PUFFS/INHALER INH SCH (07:45)
--- NOTE | 2018-12-22 08:46 | Orthopedic Progress Note ---
Date of Service December 22, 2018 Assessment & Plan (1) Right knee DJD: POD #2, Right TKA PT/ OT DVT proph- ASA D/C planning- Home w HH today per medicine, Increased K+ already sent to patient,s pharmacy, to follow up with PCP. Subjective POD #2, Right TKA, doing well, denies SOB, CP, N/V, pain controlled well. k+ 3.1. Physical Exam Vital Signs (Past 24 Hours): Last Vital Signs Temp 36.7 C 12/22/18 07:09 Pulse 52 L 12/22/18 07:09 Resp 18 12/22/18 07:09 BP 153/82 H 12/22/18 07:09 Pulse Ox 98 12/22/18 07:09 Physical Exam: Right knee silverlon dressing c/d/i, no drainage, no erythema, toes and ankle mobile, A&Ox3.
[2018-12-22] MEDS ORDERED: POTASSIUM CHLORIDE 20 MEQ TABCR PO STA (09:25)
[2018-12-22] MEDS: TRAMADOL HCL 50 MG TABLET PO PRN ×2 (11:49)
--- NOTE | 2018-12-24 12:57 | Discharge Summary ---
Date of Service January 09, 2019 Discharge Data Consultations 12/15/18 12:41 Consult Hospitalist Routine 12/20/18 13:24 Consult Case Management - Discharge Planning Routine Procedures Performed Operation Date: 12/20/18 11:00 Actual Procedures p Right Total Knee Arthroplasty, Excision Loose Bodies(Right) - Duncan Dominguez MD
--- NOTE | 2018-12-24 12:57 | Discharge Summary ---
Date of Service January 09, 2019 Admission HPI Per Admitting Provider 68 y/o M who was admitted on 12/20 s/p R TKA with Dr. Dominguez. Pt is doing well post-op. He has no pain at present. Tolerating PO without issue. Pt denies fever, SOB, chest pain, abd pain, n/v/c/d, LE swelling. Pt states he has no hx of DM. He did have an elevated A1c at one point in the 7s, but he lost weight and it dropped to 7.0. Discharge Data Consultations 12/15/18 12:41 Consult Hospitalist Routine 12/20/18 13:24 Consult Case Management - Discharge Planning Routine Procedures Performed Operation Date: 12/20/18 11:00 Actual Procedures p Right Total Knee Arthroplasty, Excision Loose Bodies(Right) - Dnucan Dominguez MD
--- NOTE | 2019-01-07 21:49 | Discharge Summary ---
This is a 68-year-old male patient of Dr. Dominguez'joey complaining of chronic right knee pain, longstanding, now progressively getting worse. The patient failed conservative treatment and elected to proceed with a left total knee arthroplasty. PAST MEDICAL HISTORY: Hypertension, hypercholesterolemia, asthma, sleep apnea with CPAP, anxiety, osteoarthritis, acid reflux, obesity, kidney stones and BPH. POSTOPERATIVE COURSE: The patient underwent a right total knee arthroplasty on 12/20/2018. He was followed closely with DVT prophylaxis in the form of aspirin, physical therapy, medical consultation and pain control. The patient did have some hypokalemia. Postoperatively, he was changed from 10 to 20 mEq of potassium prior to discharge and he was stable. He was advised to contact his family physician within the next week. Otherwise, an uneventful postoperative course. PHYSICAL EXAMINATION: On discharge, right knee incision was clean, dry and intact. There was no redness or drainage. He had no calf tenderness and negative Homans sign. Neurologically and neurovascularly he is intact in his right lower extremity. DIAGNOSES: Status post right total knee arthroplasty with postoperative hypokalemia, resolved on discharge. He also has a history of hypertension, hypercholesterolemia, asthma, sleep apnea, anxiety, osteoarthritis, acid reflux, obesity, kidney stones and benign prostatic hypertrophy. PLAN: The patient was discharged with home health services. He will continue his preadmission medications with the addition of aspirin for DVT prophylaxis, physical therapy and pain medications. He will follow up as scheduled as an outpatient. Please note, he went home on aspirin and not Xarelto.
== END 2018-12-22 12:26 | disposition home health service (06) | DRG 470 ==
LOC: ASU 08:19 → 3E 12:34